=== PATIENT | female | born 1955 | race Caucasian/White ===

== ENCOUNTER → 2022-05-06 14:53 | Outpatient (BNVA) | payer MEDICARE, OTHER, SELFPAY | PROVIDERS: Visit Provider Psychiatry & Neurology Psychiatry | DX: F32.5 Major depressive disorder, single episode, in full remission (principal); F41.1 Generalized anxiety disorder; F41.0 Panic disorder [episodic paroxysmal anxiety] | CPT/HCPCS: 99212 ==

== ENCOUNTER 2023-07-18 14:38 | Outpatient (AMB) | payer MEDICARE, OTHER, SELFPAY ==
--- NOTE | 2023-07-18 13:51 | A.OFFPSYCH_ITS ---
Intake Intake Visit Reasons: depression Allergies No Known Allergies Allergy (Verified 05/18/22 12:10) Medication List - Last Reconciled 07/18/23 by Surya Valencia MD amlodipine 5 mg PO DAILY bupropion HCl XL (Wellbutrin XL) 150 mg PO QAM clonazepam (Klonopin) 0.5 mg PO DAILY PRN hydrochlorothiazide 25 mg PO DAILY levothyroxine 200 mcg PO DAILY losartan 100 mg PO DAILY trazodone 150 mg PO QPM HPI- Psychiatric Chief Complaint: depression HPI Narrative: Pt seen in f/u mood has generally been ok had prostate ca low grade [facility] this happened recently doing ok they are doing watchful waiting no medical changes colette calabrese primary youngest d 2 girls patient has generally been doing welle difficulty at times with insomnia continues to enjoy her [employer]. On bupropion trazodone clonazepam p.r.n. No agoraphobia or significant panic Past Psychiatric History: History of dysthymia and panic disorder Mental Status Exam Mental Status Exam Narrative: Mental Status Exam Narrative: Appearance: Casually dressed Behavior: Cooperative appropriate psychomotor: Within normal limits Speech: Normal volume and prosody Thought proccess logical and goal-directed Thought content: Future oriented no self-harming thoughts some ruminations regarding and prostate ca Mood: Mild anxiety Affect: Appropriate to mood full affect SI:denies HI:denies VH/AH:none Delusions: None Insight/judgment: Good insight and judgment Memory/cog: Intact Telehealth Telehealth Location of provider rendering services: practice address Location of patient: address on file Patient Identification confirmed using: Name, : Yes Telehealth method: video Patient verbally consented to treatment: Yes Patient verbally consented to billing insurance company: Yes Minutes spent on Phone/Video with Pt.: 22 Assessment and Plan Assessment & Plan (1) Major depression in full remission: Status: Acute Code(s): F32.5 - Major depressive disorder, single episode, in full remission (2) Generalized anxiety disorder: Status: Acute Code(s): F41.1 - Generalized anxiety disorder (3) Panic disorder [episodic paroxysmal anxiety]: Status: Acute Code(s): F41.0 - Panic disorder [episodic paroxysmal anxiety] Plan Patient generally doing well some mild depressive symptoms winter again reviewed multiple strategies to deal with anxiety symptoms mild dysphoria at times. No current side effects notedNo new significant medical problems continue plan of care. Patient generally stable may see if she can follow-up with her PCP Counseling and coordination of Care Pt. Self Management counseling: Breathing Details: I spent [] minutes reviewing the record, seeing the patient and documenting in the medical record. Counseling provided to the patient/caregiver as outlined below. Addressed patient/caregiver concerns regarding current medication regime including effective adherence. Addressed patient/caregiver concerns regarding diagnosis and prognosis including accuracy of diagnosis, prognosis over time, impact of diagnosis. Addressed patient/caregiver concerns regarding impact of recent stressors. [facility] Medical History (Updated 05/31/22 @ 14:18 by Surya Valencia MD) Major depression in full remission Generalized anxiety disorder Panic disorder [episodic paroxysmal anxiety] Hypertension Surgical History (Updated 05/31/22 @ 14:18 by Surya Valencia MD) Status post knee replacement Social History: Patient is lives with her her parents are positive family history of anxiety and depression she has 2 daughters. The patient works in the [employer] [place] Substance History: na Trauma History: na Coding Level of Care Code Tele Est Pt Level 4 (11371) Diagnoses Major depression in full remission F32.5 Generalized anxiety disorder F41.1 Panic disorder [episodic paroxysmal anxiety] F41.0
== END 2023-07-18 14:38 | disposition home or self-care (01) ==
LOC: HO.HOP 14:38
PROVIDERS: Visit Provider Psychiatry & Neurology Psychiatry
DX: F32.5 Major depressive disorder, single episode, in full remission (principal); F41.1 Generalized anxiety disorder; F41.0 Panic disorder [episodic paroxysmal anxiety]
CPT/HCPCS: 99213

== ENCOUNTER → 2023-07-18 14:38 | Outpatient (BNVA) | payer MEDICARE, OTHER, SELFPAY | PROVIDERS: Visit Provider Psychiatry & Neurology Psychiatry ==